=== PATIENT | male | born 1965 | race Caucasian/White ===

== ENCOUNTER 2020-09-25 13:58 | Observation (INO) | payer OTHER, SELFPAY ==
[2020-09-25] VITALS (34 sets, daily range): BP systolic 126–174; BP diastolic 82–111; PULSE 80–135; RESP 13–25; TEMP 36.4–37.1; O2SAT 93–100
--- NOTE | ~2020-09-25 | XR_ITS ---
EXAMINATION: XR chest 2V EXAM DATE: 09/25/2020 14:30 INDICATION: Left-sided chest pressure. Hypertension. TECHNIQUE: Frontal and lateral projections of the chest obtained and reviewed. There is no prior jimenez dy for comparison. FINDINGS: Right basilar granuloma. The lungs are otherwise clear. There are no pleural effusions. The cardiomediastinal silhouette is within normal limits. There is no pneumothorax suspected. The b ones and soft tissues are unremarkable. IMPRESSION: No acute cardiopulmonary findings. Reviewed, dictated and finalized at location A.
--- NOTE | ~2020-09-25 | CT_ITS ---
EXAMINATION: CTA chest PE protocol EXAM DATE: 09/25/2020 15:49 INDICATION: Shortness of breath for a month. TECHNIQUE: Spiral CTA of the chest (pulmonary arteries) was performed with 100 cc Omnipaque 350 intr avenous contrast injection. Images were acquired during the pulmonary arterial phase. Coronal maxi mum intensity projection 3D-reconstructions were created by the technologist on dedicated workstation . Axial, coronal and sagittal reformatted images were reviewed. The dose-length product (DLP) for t his examination was 587.47 mGy-cm. The exposure was tailored according to patient size (auto mA exp osure control), and iterative reconstruction (ASIR) was used as additional dose reduction technique. There is no prior study for comparison. FINDINGS: Pulmonary arteries are well opacified and without intraluminal filling defects. No thora cic aortic dissection. There are 2 right middle lobe nodules measuring 4 and 3 mm likely granulomas. There are some scattered calcified lung angiomas. There are no pleural or pericardial effusions. Tracheobronchial tree is patent. There is mild mediastinal lymphadenopathy, with a right paratracheal lymph node measuring 1.9 x 1.0 c m. There are some calcifications in subcarinal lymph nodes. No enlarged hilar nodes but there are chaitanya ateral hilar calcifications as well. Could be reactive from prior granulomatous process. There is no pneumothorax. Heart normal in size. There is moderate coronary arterial calcification, arterial sclerosis. There is hepatic steatosis. There is mild thoracic spondylosis without osteoblastic or o steolytic lesions identified. IMPRESSION: 1. No pulmonary embolism or acute findings. 2. Mild mediastinal lymphadenopathy, most likely reactive. Difficult to exclude sarcoidosis or malig jamie. Consider 3 month follow-up chest CT without contrast. 3. Hepatic steatosis. Reviewed, dictated and finalized at location A. IMPRESSION: 1. No pulmonary embolism or acute findings. 2. Mild mediastinal lymphadenopathy, most likely reactive. Difficult to exclud e sarcoidosis or malignancy. Consider 3 month follow-up chest CT without contra st. 3. Hepatic steatosis.
--- NOTE | ~2020-09-25 | NM_ITS ---
EXAMINATION: NM karina stress w perfusion DATE: 09/27/2020 13:28 INDICATION: Chest pain TECHNIQUE: Rest images were obtained following intravenous administration of 9.8 mCi Tc99m tetrofosmi n (Myoview). The patient was infused intravenously with Lexiscan (Regadenoson). Then, 31.1 mCi Tc99m tetrofosmin (Myoview) was administered intravenously, and stress images were obtained in supine posit ion. Additional prone post stress images were obtained. Data was reconstructed into short axis and ho rizontal and vertical long axis SPECT images. Gated SPECT images were also obtained. COMPARISON: None. FINDINGS: There are couple small mild nonreversible perfusion defects consistent with infarcts at the mid inferolateral segment and at the mid anterolateral segment. No reversible ischemia. There is nor mal left ventricular chamber size, wall motion and ejection fraction. Left ventricular ejection frac tion measures 70%. IMPRESSION: 1. Normal myocardial perfusion at rest and during stress. 2. Left ventricular ejection fraction measuring >70%. Reviewed, dictated and finalized at location A.
--- NOTE | 2020-09-25 14:08 | ECG_ITS ---
Measurements Intervals [place] Rate: 119 P: 60 CO: 124 QRS: 39 QRSD: 76 T: 56 QT: 327 QTc: 461 Interpretive Statements SINUS TACHYCARDIA POSSIBLE LEFT ATRIAL ENLARGEMENT BORDERLINE ST-T WAVE ABNORMALITY- ANTEROLAT/INF LEADS BASELINE ARTIFACT- I, II, III, AVR, AVL, AVF, V1-V2, V4-V5 ABNORMAL ECG Electronically Signed On 09-25-2020 14:29:32 CDT by Solomon Elias D.O.
[2020-09-25 14:45] LABS: Basophils Absolute Auto 0.1 K/mm3 (0.0-0.1); Basophils Percent Auto 0.8 % (0.2-1.2); Eosinophils Absolute Auto 0.1 K/mm3 (0-0.3); Eosinophils Percent Auto 0.7 % (0-4.4); Hematocrit 43.3 % (42.0-52.0); Hemoglobin 14.9 g/dL (14.0-18.0); Immature Granulocyte Absolute 0.04 K/mm3 (0.00-0.031); Immature Granulocyte Percent A 0.6 % (0-0.5); Immature Platelet Fraction Pct 3.9 % (0.9-11.2); Lymphocytes Absolute Auto 0.59 K/mm3 (0.9-3.2); Lymphocytes Percent Auto 8.1 % (18.3-44.2); Mean Corpuscular HGB Conc 34.4 g/dl (32-36); Mean Corpuscular Volume 95.8 fl (80-100); Mean Platelet Volume 9.6 fl (7.4-10.4); Monocytes Absolute Auto 0.5 K/mm3 (0.1-0.6); Monocytes Percent Auto 6.6 % (2.6-8.5); Neutrophils Absolute Auto 6.1 K/mm3 (1.3-6.7); Neutrophils Percent Auto 83.2 % (45.5-73.1); Platelet Count Result 161 k/mm3 (150-375); Red Blood Count 4.52 M/mm3 (4.6-6.20); Red Cell Distribution Width 12.5 % (11.5-14.5); White Blood Count 7.3 K/mm3 (4.5-10.0)
[2020-09-25 14:52] LABS: INR 0.9; Prothrombin Time 12.8 Seconds (11.1-14.7)
--- NOTE | 2020-09-25 14:52 | ED.CHESTPAIN ---
HPI - Chest Pain General Chief Complaint: Chest Pain Stated Complaint: chest pain, SOB Time Seen by Provider: 09/25/20 14:30 Source: patient and RN notes reviewed Mode of arrival: ambulatory Limitations: no limitations History of Present Illness HPI narrative: Patient is 55 years old white male presents to the ED with chest pain started today. Patient had history of shortness of breath on exertion which is gradually getting worse over the last months. Patient reported the pain is across the chest, aching, worse with exertion. No radiation. Patient denies any fever, chills, nausea, vomiting, back pain or abdominal pain. Last alcohol intake was 2 days ago. Related Data Home Medications Medication Instructions Recorded Confirmed amlodipine 09/25/20 atorvastatin 09/25/20 gabapentin 09/25/20 hydrocodone-acetaminophen 09/25/20 meloxicam 09/25/20 09/25/20 Allergies Allergy/AdvReac Type Severity Reaction Status Date / Time amoxicillin Allergy Intermediate ITCHING Verified 03/11/19 06:24 clavulanic acid Allergy Intermediate ITCHING Verified 03/11/19 06:24 lisinopril Allergy Intermediate ANGIOEDEMA Verified 03/11/19 06:24 Review of Systems Review of Systems: Narrative: CONSTITUTIONAL: Denies fever, chills, or sweats. EYES: Denies visual changes, redness, or discharge. ENT: Denies rhinorrhea, congestion, sore throat, or otalgia. CARDIOVASCULAR: Denies chest pain, palpitations, or edema. RESPIRATORY: Denies cough or dyspnea. GASTROINTESTINAL: Denies abdominal pain, nausea, vomiting, or diarrhea. GENITOURINARY: Denies dysuria or hematuria. SKIN: Denies rash or itching. MUSCULOSKELETAL: Denies back pain, joint pain, or myalgia. NEUROLOGIC: Denies headache, numbness, or weakness. PSYCHIATRIC: Denies anxiety or depression. PMFSH Social History Social History Gender identity (if verbalized by the patient): Male Exam Narrative: Exam Narrative: General appearance: Well-developed, well-nourished Skin: Normal color Head: Normocephalic, nontraumatic Eyes: Clear conjunctiva ENT: Oropharynx normal, ears normal, nose normal Neck: Supple, nontender Chest and respiratory: Airway patent, no respiratory distress, no accessory muscle use Heart: Regular rate/rhythm Abdomen: Soft, nontender, no organomegaly, quiet bowel sounds Vascular: Normal peripheral pulses, normal capillary refill. Musculoskeletal: Normal range of motion, nontender back Neurologic: Alert and oriented ?3, [employer] is normal as tested, no gross motor deficit Course Course Emergency Course: Stable Reevaluation(s) Reevaluation #1: Currently patient having some shaking almost all over his body, telling me that be because he did not eat his breakfast today. Patient reports drinking alcohol every other day. Last alcohol intake was 2 days ago. Ativan 1 mg IV ordered. Date: 09/25/20 Time: 16:50 Vital Signs Vital signs: Vital Signs Temperature 37.1 C 09/25/20 14:09 Pulse Rate 135 H 09/25/20 14:09 Respiratory Rate 18 09/25/20 14:09 Blood Pressure 145/95 H 09/25/20 14:09 Pulse Oximetry 97 09/25/20 14:09 Temperature 37.1 C 09/25/20 14:09 Pulse Rate 108 H 09/25/20 16:07 Respiratory Rate 18 09/25/20 14:09 Blood Pressure 145/95 H 09/25/20 14:09 Pulse Oximetry 97 09/25/20 14:09 MDM - Chest Pain MDM Narrative Medical decision making narrative: Patient presents with shortness of breath and chest pain. Coronary artery disease, pneumonia, congestive heart failure, COPD is my concern. Labs, chest x-ray, ABG on room air ordered. Further plan to follow Differential Diagnosis Differential diagnosis: Likely pne
[2020-09-25 14:53] LABS: Partial Thromboplastin Time 23.6 SECONDS (22.3-36.8)
[2020-09-25 14:57] LABS: Anion Gap 14 mmol/L (8-16); Blood Urea Nitrogen 7 mg/dL (9-20); Calcium 8.8 mg/dL (8.4-10.2); Carbon Dioxide 22 mmol/L (22-30); Chloride 100 mmol/L (98-107); Estimated CRCL calculation 97 ml/min; Estimated Glomerular Filt Rate > 60; Glucose 113 mg/dL (75-110); Potassium 3.7 mmol/L (3.4-5.0); Sodium 136 mmol/L (137-145)
[2020-09-25 15:08] LABS: Troponin I < 0.012 ng/mL (0.000-0.034)
[2020-09-25 15:12] LABS: D Dimer 0.79 ug/mL (<0.48)
[2020-09-25 15:12] LABS: Base Excess ABG -0.7 mEq/l (+/-2.0); Fractional Inspired Oxygen 21 %; HCO3 ABG 22.5 mEq/l (22.0-26.0); Oxygen Content ABG 19.6 %vol (16.0-22.0); Oxyhemoglobin 94.1 % THb (90.0-100.0); PCO2 ABG 33.1 mmHg (35.0-45.0); PO2 ABG 77.1 mmHg (80.0-100.0); PO2 FiO2 Ratio Arterial Blood 3.67 %; Total Hemoglobin 14.8 g/dL (12.0-18.0)
[2020-09-25 15:13] LABS: Device ROOM AIR; Modified Allen's Test Pass; Site Drawn LEFT RADIAL
[2020-09-25] MEDS: ASPIRIN 81 MG CHEWABLE TABLET 324 MG PO (16:06)
[2020-09-25] MEDS: METOPROLOL TARTRATE 25 MG TABLET PO (16:07)
[2020-09-25] MEDS: NITROGLYCERIN OINTMENT 1 INCH DOSE TRANSDERM (16:07)
[2020-09-25] MEDS: ENOXAPARIN 100 MG/ML SYRINGE 90 MG SUB-Q (16:07)
[2020-09-25] MEDS: LORazepam INJ (*CRX) 2 MG/ML VIAL 1 MG IV PUSH (17:09)
[2020-09-25 17:47] LABS: Troponin I < 0.012 ng/mL (0.000-0.034)
--- NOTE | 2020-09-25 20:05 | ECG_ITS ---
Measurements Intervals [place] Rate: 89 P: 66 NM: 146 QRS: 37 QRSD: 92 T: 51 QT: 387 QTc: 471 Interpretive Statements SINUS RHYTHM POSSIBLE LEFT ATRIAL ENLARGEMENT BORDERLINE ECG Electronically Signed On 09-26-2020 7:07:26 CDT by Solomon Elias D.O.
--- NOTE | 2020-09-25 20:31 | PM.IMHP ---
H&P: HPI History of Present Illness Date/Time: 09/25/20 20:31 Chief Complaint: shortness of breath and chest pain Narrative: This is a pleasant 55-year-old male with known history of chronic hypertension and hyperlipidemia who presented to the hospital with a complaint of left-sided chest pain that started earlier today. The patient complains of having intermittent shortness of breath over the past couple of months. He describes his shortness of breath as occurring at any time and lasting for an unknown amount of duration. He describes it as not being able to get a full breath. The patient denies any associated symptoms of significant coughing, fevers, chills, abdominal pain, or lower extremity swelling. The patient has no previous history of blood clotting disorders. He also does not have any past medical history of heart disease. His last stress test was several years ago and was normal. Today the patient's chest pain started while he was helping his friend at home. They were not doing any exertional activity at that time. The patient's chest pain does not radiate anywhere and he denies any associated diaphoresis, nausea, vomiting, palpitations, or syncope. Patient is known to drink between 5-8 alcoholic drinks every other day. He reports his last drink was 2 days ago. Today in the emergency room the patient was evaluated and was given 2 doses of 1 mg IV Ativan as the patient appeared to be very tremulous and anxious. Initial cardiac workup has been negative as EKG does not show any ST segment changes and troponin has been negative x2. ER provider has consulted Cardiology and we have been asked to admit the patient to the hospital for cardiac rule out. The patient has no other complaints at this time. CTA chest was performed in the emergency room which did demonstrate mild mediastinal lymphadenopathy. Review of Systems Review of Systems: All systems reviewed & are unremarkable except as noted in HPI and below PMFSH Past Medical History Medical History (Updated 09/25/20 @ 20:43 by Pardeep Mullen MD) Chronic hypertension Hyperlipidemia Surgical History Surgical History (Updated 09/25/20 @ 20:35 by Pardeep Mullen MD) History of hernia surgery Family History Family History (Updated 09/25/20 @ 20:35 by Pardeep Mullen MD) Mother Breast cancer Social History Social History (Updated 09/25/20 @ 20:36 by Pardeep Mullen MD) Smoking status: Never smoker Tobacco type: smokeless tobacco Smokeless tobacco user: chewing tobacco Alcohol intake: current Drinks per week: 18 Substance use: never Gender identity (if verbalized by the patient): Male Spiritual care concerns: No Meds Home Medications and Allergies Home Medications Medication Instructions Recorded Confirmed Type amlodipine 5 mg PO DAILY 09/25/20 09/25/20 History atorvastatin 20 mg PO HS 09/25/20 09/25/20 History cyclobenzaprine 10 mg PO HS 09/25/20 09/25/20 History gabapentin 300 mg PO TID 09/25/20 09/25/20 History hydrocodone-acetaminophen 1 tablet PO QID PRN 09/25/20 09/25/20 History meloxicam 15 mg PO DAILY 09/25/20 09/25/20 History Allergies Allergy/AdvReac Type Severity Reaction Status Date / Time amoxicillin Allergy Intermediate ITCHING Verified 03/11/19 06:24 clavulanic acid Allergy Intermediate ITCHING Verified 03/11/19 06:24 lisinopril Allergy Intermediate ANGIOEDEMA Verified 03/11/19 06:24 Vital Signs Vital Signs - 24 hr 09/25/20 14:09 09/25/20 15:00 09/25/20 15:01 Temperature 37.1 C Pulse Rate 135 H 115 H 115 H Respiratory Rate 18 19 21 H Blood Pressure 145/95 H 164/89 H Pulse Oximetry 97 98 96 09/25/20 15:15 09/25/20 15:17 09/25/20 15:30 Temperature Pulse Rate 110 H 116 H 105 H Respiratory Rate 23 H 25 H 23 H Blood Pressure 138/97 H Pulse Oximetry 93 97 97 09/25/20 15:31 09/25/20 15:55 09/25/20 15:56 Temperature Pulse Rate 106 H 106 H 106 H Respiratory Rate 21 H 14 13 Blo
[2020-09-25 20:59] LABS: Alanine Aminotransferase 106 U/L (4-50); Alkaline Phosphatase 47 U/L (38-126); Aspartate Amino Transferase 130 U/L (17-59); Lipase 227 U/L (23-300)
[2020-09-25 20:59] LABS: Troponin I < 0.012 ng/mL (0.000-0.034)
[2020-09-26] VITALS (16 sets, daily range): BP systolic 130–186; BP diastolic 73–104; PULSE 70–101; RESP 14–20; TEMP 36.1–36.6; O2SAT 96–99; BMI 27.8
[2020-09-26] MEDS: ATORVASTATIN 20 MG TABLET PO ×2 (00:01→20:39)
[2020-09-26 00:02] LABS: Glucose Point of Care 101 (65-105)
[2020-09-26] MEDS: LORazepam INJ (*CRX) 2 MG/ML VIAL 1 MG IV PUSH (00:02)
[2020-09-26] MEDS: CYCLOBENZAPRINE HCL 10 MG TABLET PO ×2 (00:02→20:41)
--- NOTE | 2020-09-26 06:00 | ECHO_ITS ---
Patient Info Name: Nico Claudio Age: 55 years : 1965 Gender: Male Ht: 71 in Wt: 198 lbs BSA: 2.14 m2 HR: 91 bpm BP: 148 / 93 mmHg Heart Rhythm: Sinus Rhythm Technical Quality: Good Exam Date: 09/26/2020 11:12 AM Exam Location: [facility] Patient Status: Outpatient Admit Date: 09/25/2020 Staff Ordering Physician: Betzy Rangel MD Mingle Operator: Akil Curtis, BEBETO, RT Attending Provider: Jennifer Morris MD Exam Type: CA echo doppler color flow Study Info Indications R07.89 - Other chest pain Complete two-dimensional, color flow and Doppler transthoracic echocardiogram is performed. Strain analysis performed. Summary 1. Complete two-dimensional, color flow and Doppler transthoracic echocardiogram is performed. 2. Strain analysis performed. 3. Global longitudinal strain is borderline at -16 %. 4. Left ventricular chamber dimension is normal. 5. Left ventricular systolic function is normal, estimated at 65-70%. 6. There is no increased left ventricular wall thickness. 7. The left ventricular diastolic function is grade I diastolic dysfunction. 8. The pericardium appears increased echogenicity of the pericardium. Left Ventricle Global longitudinal strain is borderline at -16 %. Left ventricular chamber dimension is normal. Left ventricular systolic function is normal, estimated at 65-70%. There is no increased left ventricular wall thickness. The left ventricular diastolic function is grade I diastolic dysfunction. Right Ventricle Right ventricular chamber dimension is normal. Right ventricular systolic function is normal. Left Atria Left atrial chamber dimension is normal. Right Atria Right atrial chamber dimension is normal. Atrial Septum Intact interatrial septum visualized by color flow imaging. Aortic Valve The aortic valve is trileaflet. There is mild aortic valve sclerosis. There is no aortic valve stenosis. There is trace aortic valve regurgitation. Pulmonic Valve The pulmonic valve is normal. There is no pulmonic valve stenosis. There is trace pulmonic regurgitation. Mitral Valve The mitral valve has normal leaflets. There is no mitral valve stenosis. There is trace mitral valve regurgitation. Tricuspid Valve The tricuspid valve leaflets are normal. There is no significant tricuspid valve stenosis. There is trace tricuspid valve regurgitation. Pericardium/Pleural The pericardium appears increased echogenicity of the pericardium. There is trivial pericardial effusion. Inferior Vena Cava Normal inferior vena cava with <50% collapse upon inspiration consistent with elevated right atrial pressure, 10 mmHg. Aorta The aortic root size at the sinus of Valsalva is normal. The prox ascending aorta size is normal. Left Ventricular Outflow Tract Name Value Normal LVOT 2D LVOT Diameter 2.1 cm LVOT Doppler LVOT Peak Gradient 4 mmHg LVOT Mean Gradient 2 mmHg LVOT VTI 17 cm LVOT VTI/AV VTI Ratio 0.8 LVOT S
[2020-09-26] MEDS: THIAMINE HCL 200 MG/2 ML VIAL 100 MG IV PUSH (07:51)
[2020-09-26] MEDS: GABAPENTIN 300 MG CAPSULE PO ×3 (07:51→16:28)
[2020-09-26] MEDS: amLODIPine BESYLATE 5 MG TABLET PO (07:51)
[2020-09-26] MEDS: ASPIRIN 81 MG CHEWABLE TABLET PO (07:53)
[2020-09-26 11:10] LABS: Hematocrit 42.6 % (42.0-52.0); Hemoglobin 14.7 g/dL (14.0-18.0); Mean Corpuscular HGB Conc 34.5 g/dl (32-36); Mean Corpuscular Hemoglobin 33.1 pg (26-34); Mean Corpuscular Volume 95.9 fl (80-100); Mean Platelet Volume 9.8 fl (7.4-10.4); Platelet Count Result 114 k/mm3 (150-375); Red Blood Count 4.44 M/mm3 (4.6-6.20); Red Cell Distribution Width 12.5 % (11.5-14.5); White Blood Count 4.3 K/mm3 (4.5-10.0)
[2020-09-26 11:24] LABS: Alanine Aminotransferase 82 U/L (4-50); Albumin Level 4.2 g/dL (3.5-5.1); Alkaline Phosphatase 43 U/L (38-126); Anion Gap 7 mmol/L (8-16); Aspartate Amino Transferase 90 U/L (17-59); Bilirubin,Total 1.5 mg/dL (0.2-1.3); Blood Urea Nitrogen 15 mg/dL (9-20); Calcium 8.8 mg/dL (8.4-10.2); Carbon Dioxide 30 mmol/L (22-30); Chloride 99 mmol/L (98-107); Estimated CRCL calculation 126 ml/min; Estimated Glomerular Filt Rate > 60; Glucose 143 mg/dL (75-110); Magnesium 1.8 mg/dL (1.6-2.3); Potassium 3.4 mmol/L (3.4-5.0); Sodium 136 mmol/L (137-145)
[2020-09-26 13:17] LABS: Glucose Point of Care 115 (65-105)
--- NOTE | 2020-09-26 15:06 | PM.CNCAR ---
Assessment and Plan Assessment and plan (1) Abnormal CT of the chest: Code(s): R93.89 - Abnormal findings on diagnostic imaging of other specified body structures Status: Acute Assessment and Plan: Will consult pulmonology, Dr. Lerma. (2) Hyperlipidemia: Qualifiers: Hyperlipidemia type: unspecified Qualified Code(s): E78.5 - Hyperlipidemia, unspecified Code(s): E78.5 - Hyperlipidemia, unspecified Status: Chronic Assessment and Plan: On a statin (3) Chronic hypertension: Code(s): I10 - Essential (primary) hypertension Status: Chronic Assessment and Plan: Above goal. Will initiate his amlodipine 5 mg daily as well as start metoprolol 25 mg p.o. b.i.d.. (4) Chest pain: Qualifiers: Chest pain type: unspecified Qualified Code(s): R07.9 - Chest pain, unspecified Code(s): R07.9 - Chest pain, unspecified Status: Acute Assessment and Plan: Unlikely cardiac in etiology. Very atypical for angina. Will keep NPO after midnight. Will perform a Lexiscan myocardial perfusion study in the morning. (5) Alcohol dependence: Qualifiers: Substance use status: unspecified alcohol-induced disorder Qualified Code(s): F10.29 - Alcohol dependence with unspecified alcohol-induced disorder Code(s): F10.20 - Alcohol dependence, uncomplicated Status: Chronic Assessment and Plan: Alcohol abuse counseling performed. He likely is going to need some DT prophylaxis but will defer to the hospitalists (6) Pre-syncope: Code(s): R55 - Syncope and collapse Status: Acute Assessment and Plan: Probably has some degree of orthostasis either from chronic alcohol use and autonomic dysfunction versus dehydration or a combination thereof. He is encouraged to stay hydrated and will check the orthostatic blood pressure History of Present Illness History of Present Illness Consult date/time: 09/26/20 15:06 Requesting physician: Betzy Rangel MD Consult reason: chest pain Reason For Visit: Chest pain, dyspnea on exertion Narrative: Date of service 09/26/2020 Reason for consultation: Chest pain, dyspnea on exertion History: patient is a 55-year-old male who does not have known cardiac disease. He presents hospital because chest pressure. He states the chest pressure has been off and on for the past couple of months. He has had about 3 or 4 episodes of chest pain lasting for about an hour. Not exertional chest pain. Yesterday however it was more significant and lasted for a longer period of time. He came to hospital after multiple hours of having chest pressure with a little bit of radiation towards the left shoulder and with some associated lightheadedness. Gradually over time it did ease up on its own. He has ruled out myocardial infarction is EKG was unremarkable. He does drink in excess and at least 6 beers every other day he states. He also has been having some shortness of breath. Shortness of breath has been with exertion and has been present for the past several months. Is progressively worsening. His dyspnea is present when he is going up and down a flight of steps. He denies any syncope. No paroxysmal nocturnal dyspnea. No orthopnea. No edema. He does describe some dizziness upon standing. Review of Systems Review of Systems: All systems reviewed & are unremarkable except as noted in HPI and below Constitutional: Constitutional: Denies weakness Eyes: Eyes: Denies blurry vision ENT: Reports Normal hearing present Cardiovascular: Cardiovascular: Reports chest pain Respiratory: Respiratory: Reports dyspnea Gastrointestinal: Gastrointestinal: Denies abdominal pain Genitourinary: Genitourinary: Denies dysuria Musculoskeletal: Musculoskeletal: Reports arthralgias and Denies neck pain Integumentary/Breasts: Skin/Breast: Denies dry skin Neurologic: Denies headache(s) Psychiatric: Psy
--- NOTE | 2020-09-26 17:08 | PM.IMPN ---
Progress Note: A&P Assessment and Plan (1) Chest pain: Qualifiers: Chest pain type: unspecified Qualified Code(s): R07.9 - Chest pain, unspecified Code(s): R07.9 - Chest pain, unspecified Status: Acute Assessment and Plan: Rule out acute coronary syndrome. Patient has been placed in observation status. Continue telemetry. Will check another EKG now. Continue to trend troponin. We will check a lipase and liver function enzymes which have not been checked yet. Continue nitroglycerin as needed for chest pain. Morphine as needed for chest pain. Continue therapeutic Lovenox for anticoagulation. Cardiology has been consulted by ER provider. Continue Cardiology recommendations. 09/26/20 17:08 Patient is a 55-year-old male presented emergency department with a complaint of shortness of breath and left-sided chest pain symptoms are persisting for last couple of months but getting progress worse, 3 sets of cardiac enzymes are negative there is no acute changes on EKG unlikely cardiac source or chest pain, cardiac echo is pending, patient is seen by Cardiology and suspect pulmonary source chest pain and shortness of breath, patient has abnormal CT of chest suggesting malignancy with lymphadenopathy patient will be seen by pulmonology and further recommendation to follow, patient also has a history of alcohol abuse he drinks 7-8 alcohol drinks every other day he denies any history of DT. (2) Exertional dyspnea: Code(s): R06.00 - Dyspnea, unspecified Status: Acute Assessment and Plan: Echocardiogram is pending. The patient is not requiring any supplemental oxygen at this time. (3) Abnormal CT of the chest: Code(s): R93.89 - Abnormal findings on diagnostic imaging of other specified body structures Status: Acute Assessment and Plan: The patient's mediastinal lymphadenopathy may be indicative of why the patient has had chronic dyspnea. He will need to have this worked up in the outpatient setting on discharge. (4) Alcohol dependence: Qualifiers: Substance use status: unspecified alcohol-induced disorder Qualified Code(s): F10.29 - Alcohol dependence with unspecified alcohol-induced disorder Code(s): F10.20 - Alcohol dependence, uncomplicated Status: Chronic Assessment and Plan: [facility] protocol. Ativan withdrawal prophylaxis IV. Thiamine IV daily. (5) Chronic hypertension: Code(s): I10 - Essential (primary) hypertension Status: Chronic Assessment and Plan: Monitor blood pressure. Continue amlodipine. (6) Hyperlipidemia: Qualifiers: Hyperlipidemia type: unspecified Qualified Code(s): E78.5 - Hyperlipidemia, unspecified Code(s): E78.5 - Hyperlipidemia, unspecified Status: Chronic Assessment and Plan: Continue atorvastatin. Additional Plan Date of service was September 25, 2020 at approximately 8:00 p.m. Subjective Date/time seen: 09/26/20 17:08 Patient is a 55-year-old male presented emergency department with a complaint of shortness of breath and left-sided chest pain symptoms are persisting for last couple of months but getting progress worse, 3 sets of cardiac enzymes are negative there is no acute changes on EKG unlikely cardiac source or chest pain, cardiac echo is pending, patient is seen by Cardiology and suspect pulmonary source chest pain and shortness of breath, patient has abnormal CT of chest suggesting malignancy with lymphadenopathy patient will be seen by pulmonology and further recommendation to follow, patient also has a history of alcohol abuse he drinks 7-8 alcohol drinks every other day he denies any history of DT. Review of Systems Review of Systems: All systems reviewed & are unremarkable except as noted in HPI and below Exam Narrative: Exam Narrative: Patient is comfortable, NAD HEENT: eyes are clear and none icteric LUNGS: Bilateral fair air entry with rhonchi H
[2020-09-26 17:52] LABS: Glucose Point of Care 195 (65-105)
[2020-09-26] MEDS: METOPROLOL TARTRATE 25 MG TABLET PO (20:39)
[2020-09-27] VITALS (9 sets, daily range): BP systolic 131–172; BP diastolic 80–99; PULSE 70–92; RESP 12–18; TEMP 36.6–36.9; O2SAT 96–100
[2020-09-27 00:13] LABS: Glucose Point of Care 156 (65-105)
[2020-09-27 05:15] LABS: Hematocrit 43.6 % (42.0-52.0); Hemoglobin 14.7 g/dL (14.0-18.0); Immature Platelet Fraction Pct 4.7 % (0.9-11.2); Mean Corpuscular HGB Conc 33.7 g/dl (32-36); Mean Corpuscular Hemoglobin 32.6 pg (26-34); Mean Corpuscular Volume 96.7 fl (80-100); Mean Platelet Volume 10.3 fl (7.4-10.4); Platelet Count Result 128 k/mm3 (150-375); Red Blood Count 4.51 M/mm3 (4.6-6.20); Red Cell Distribution Width 12.4 % (11.5-14.5); White Blood Count 5.2 K/mm3 (4.5-10.0)
[2020-09-27 05:26] LABS: Alanine Aminotransferase 77 U/L (4-50); Albumin Level 4.3 g/dL (3.5-5.1); Alkaline Phosphatase 41 U/L (38-126); Anion Gap 6 mmol/L (8-16); Aspartate Amino Transferase 73 U/L (17-59); Bilirubin,Total 1.2 mg/dL (0.2-1.3); Blood Urea Nitrogen 10 mg/dL (9-20); Calcium 8.9 mg/dL (8.4-10.2); Carbon Dioxide 31 mmol/L (22-30); Chloride 103 mmol/L (98-107); Estimated CRCL calculation 97 ml/min; Estimated Glomerular Filt Rate > 60; Glucose 116 mg/dL (75-110); Potassium 3.4 mmol/L (3.4-5.0); Sodium 140 mmol/L (137-145)
--- NOTE | 2020-09-27 08:00 | EST_ITS ---
Patient Info Name: Nico Claudio Age: 55 years : 1965 Gender: Male Ht: 71 in Wt: 199 lbs BSA: 2.14 m2 Exam Date: 09/27/2020 12:15 PM Exam Location: [facility], [place] Stress Patient Status: Inpatient Admit Date: 09/25/2020 Staff Ordering Physician: Ernesto Borrero MD Attending Provider: Jennifer Morris MD Exercise Technologist: Rhonda Reyes RDCS Exercise Physician: Ernesto Borrero MD Exam Type: CA stress karina w NM Study Info Indications R07.9 - Chest pain, unspecified A regadenoson stress test was performed. Summary 1. Please correlate with nuclear medicine images, reported separately. 2. No abnormal ST-T wave changes with lexiscan. Protocol: Lexiscan Stress ECG Details Stage: REST Duration (min): 12 min : 28 sec HR (bpm): 100 SBP (mmHg): 148 DBP (mmHg): 99 Stage: REST Duration (min): 13 min : 33 sec HR (bpm): 91 SBP (mmHg): 148 DBP (mmHg): 99 Stage: STAGE 1 Duration (min): 1 min : 0 sec HR (bpm): 121 SBP (mmHg): 157 DBP (mmHg): 111 Stage: RECOVERY Duration (min): 1 min : 0 sec HR (bpm): 124 SBP (mmHg): 134 DBP (mmHg): 95 Stage: RECOVERY Duration (min): 2 min : 0 sec HR (bpm): 117 SBP (mmHg): 134 DBP (mmHg): 95 Stage: RECOVERY Duration (min): 3 min : 0 sec HR (bpm): 115 SBP (mmHg): 131 DBP (mmHg): 95 Stage: RECOVERY Duration (min): 3 min : 8 sec HR (bpm): 115 SBP (mmHg): 131 DBP (mmHg): 95 Rest HR: 91 bpm Peak HR: 124 bpm Rest Sys BP: 148 mmHg Peak Sys BP: 157 mmHg Max Pred HR: 165 bpm % Max Pred HR: 75 % Target HR: 140 bpm Max RPP: 19,468 bpm*mmHg Target HR Summary: Hemodynamic response to exercise was normal BP Response: Normal blood pressure response Termination Reason: Completed protocol Cardiac Symptoms: None Total Time: 1 min : 0 sec Rest Guerra BP: 99 mmHg Peak Guerra BP: 111 mmHg Total Dose: 0.4 mg Resting ECG Normal sinus rhythm. Resting ST/T wave changes. pvc. Stress ECG No abnormal ST/T wave changes with exercise. Arrhythmias Occasional PVCs. Report Signatures
[2020-09-27 09:05] LABS: Glucose Point of Care 126 (65-105)
--- NOTE | 2020-09-27 09:59 | PM.PNCARD ---
Progress Note: A&P Assessment and Plan (1) Abnormal CT of the chest: Code(s): R93.89 - Abnormal findings on diagnostic imaging of other specified body structures Status: Acute Assessment and Plan: Will consult pulmonology, Dr. Lerma. (2) Hyperlipidemia: Qualifiers: Hyperlipidemia type: unspecified Qualified Code(s): E78.5 - Hyperlipidemia, unspecified Code(s): E78.5 - Hyperlipidemia, unspecified Status: Chronic Assessment and Plan: On a statin (3) Chronic hypertension: Code(s): I10 - Essential (primary) hypertension Status: Chronic Assessment and Plan: Above goal. will increase his amlodipine to 10 mg daily. Potassium chloride 40 mg p.o. x1 will also be given (4) Chest pain: Qualifiers: Chest pain type: unspecified Qualified Code(s): R07.9 - Chest pain, unspecified Code(s): R07.9 - Chest pain, unspecified Status: Acute Assessment and Plan: Unlikely cardiac in etiology. Very atypical for angina. stress test pending (5) Alcohol dependence: Qualifiers: Substance use status: unspecified alcohol-induced disorder Qualified Code(s): F10.29 - Alcohol dependence with unspecified alcohol-induced disorder Code(s): F10.20 - Alcohol dependence, uncomplicated Status: Chronic Assessment and Plan: Alcohol abuse counseling performed. He likely is going to need some DT prophylaxis but will defer to the hospitalists (6) Pre-syncope: Code(s): R55 - Syncope and collapse Status: Acute Assessment and Plan: Probably has some degree of orthostasis either from chronic alcohol use and autonomic dysfunction versus dehydration or a combination thereof. He is encouraged to stay hydrated and will check the orthostatic blood pressure Subjective Date/time seen: 09/27/20 09:59 Interval history: 55-year-old admitted for chest pain or shortness of breath. Date of service 09/27/2020: No chest pain at this point. Feels okay. Has slight cough. no SOB Review of Systems Review of Systems: All systems reviewed & are unremarkable except as noted in HPI and below Constitutional: Constitutional: Denies fatigue, Denies headache(s) and Denies weakness Eyes: Eyes: Denies blurry vision ENT: Reports Normal hearing present, Denies headache(s) and Denies neck pain Cardiovascular: Cardiovascular: Reports chest pain and Reports dyspnea Respiratory: Respiratory: Reports dyspnea Gastrointestinal: Gastrointestinal: Denies abdominal pain Genitourinary: Genitourinary: Denies dysuria Musculoskeletal: Musculoskeletal: Reports arthralgias and Denies neck pain Integumentary/Breasts: Skin/Breast: Denies dry skin Neurologic: Reports Normal hearing present, Denies headache(s) and Denies weakness Psychiatric: Psychiatric: Denies anxiety Endocrine: Endocrine: Denies fatigue Hematologic/Lymphatic: Hematologic/Lymphatic: Denies easy bleeding Allergic/Immunologic: Allergic/Immunologic: Denies GI upset with certain foods Exam Narrative: Exam Narrative: Patient is awake alert oriented. Appears a bit tremulous but stated age Const: General: comfortable and no acute distress HENMT: General nose exam: Normal nares present Eyes: EOM: EOMs intact bilaterally Neck: Neck: supple and no JVD Chest: Other: No reproducible chest wall pain to palpation Resp: Auscultation: clear to auscultation bilaterally Cardio: Rate: regular rate Rhythm: regular rhythm Heart sounds: no murmurs GI: Inspection: normal to inspection Skin: General skin exam: normal color Neuro: Cranial nerves: Yes Normal hearing present Cognition (Neuro): normal cognition Speech: normal speech Extrem: General: normal to inspection Psych: Mental Status: mental status grossly normal Objective Data Vital Signs Vital Signs: Vital Signs - 24 hr 09/26/20 11:50 09/26/20 12:00 09/26/20 14:00 Temperature 36.5 C P
[2020-09-27] MEDS: GABAPENTIN 300 MG CAPSULE PO ×2 (10:33→14:00)
[2020-09-27] MEDS: THIAMINE HCL 200 MG/2 ML VIAL 100 MG IV PUSH (10:33)
[2020-09-27 11:50] LABS: Glucose Point of Care 131 (65-105)
--- NOTE | 2020-09-27 12:09 | PM.CNPUL ---
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 Patient has mild mediastinal adenopathy. Patient should have a follow-up CT scan of the chest in 3 months to reassess this mediastinal adenopathy. We will follow patient up in the Pulmonary Clinic and I gave him our business card and will inform our food production manager. Patient can be discharged from pulmonary perspective. Discussed with Dr. Morris, will sign off for now, please call with additional questions. History of Present Illness History of Present Illness Consult date: 09/27/20 Requesting physician: Jennifer Morris MD Reason for consult: abnormal CXR/CT Chief complaint: Chest pain, dyspnea on exertion Narrative: This is a new pulmonary consult for mediastinal lymphadenopathy. This is a 55-year-old male with a history of hypertension hyperlipidemia who came to the hospital with left-sided chest pain on 09/25. Patient had 2- troponins and a D-dimer that was positive at 0.[address] angiogram of the chest. That demonstrated no PE with mild mediastinal lymphadenopathy and paratracheal lymph node measuring 1.9 x 1 cm. There were some calcified subcarinal lymph nodes but no evidence of pneumonia, interstitial lung disease, or peripheral nodules or masses. 09/27 I interviewed the patient today and he tells me that his chest pain is improved. patient states that he has no fever, chills, rigors, phlegm production 3 times a day of white to yellow phlegm for years, no hemoptysis, patient does have sinus drainage which is chronic. Patient has lost 23 lb in the last 2 months. Patient does drink alcohol regularly and his last drink was 4 days ago. Patient does state that he has 1 year of progressively worsening dyspnea on exertion that is worse in the last 3 months. Patient is able to perform all of his activities of daily living. Patient is a never smoker. Patient was not exposed to secondhand smoke as a child or as an adult. Patient denies any illicit drug use. 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 The last 5 years he wore a mask. Before that he was exposed to multiple dusts. Patient denies and blasting, welding, asbestos exposure and has not worked in the steel mill. FINDINGS: Pulmonary arteries are well opacified and without intraluminal filling defects. No thoracic aortic dissection. There are 2 right middle lobe nodules measuring 4 and 3 mm likely granulomas. There are some scattered calcified lung angiomas. There are no pleural or pericardial effusions. Tracheobronchial tree is patent. There is mild mediastinal lymphadenopathy, with a right paratracheal lymph node measuring 1.9 x 1.0 cm. There are some calcifications in subcarinal lymph nodes. No enlarged hilar nodes but there are bilateral hilar calcifications as well. Could be reactive from prior granulomatous process. There is no pneumothorax. Heart normal in size. There is moderate coronary arterial calcification, arterial sclerosis. There is hepatic steatosis. There is mild thoracic spondylosis without osteoblastic or osteolytic lesions identified. IMPRESSION: 1. No pulmonary embolism or acute findings. 2. Mild mediastinal lymphadenopathy, most likely reactive. Difficult to exclude sarcoidosis or malignancy. Consider 3 month follow-up chest CT without contrast. 3. Hepatic steatosis. Review of Systems Review of Systems: All systems reviewed & are unremarkable except as noted in HPI and below Eyes: Eyes: Reports no additional eye complaints ENT: Reports system reviewed and no additional complaints, except as documented and Reports sinus pressure Cardiovascular: Cardiovascular: Reports no additional cardiovascular complaints Respiratory:
[2020-09-27] MEDS: POTASSIUM CHLORIDE 20 MEQ TABLET 40 MEQ PO (14:00)
[2020-09-27] MEDS: METOPROLOL TARTRATE 25 MG TABLET PO (14:00)
[2020-09-27] MEDS: ASPIRIN 81 MG CHEWABLE TABLET PO (14:04)
[2020-09-27] MEDS: amLODIPine BESYLATE 5 MG TABLET PO (14:09)
[2020-09-27] MEDS: chlordiazePOXIDE (*CRX) 25 MG CAPSULE 50 MG PO (14:10)
--- NOTE | 2020-09-27 14:44 | PC.NURSE ---
[id number] returned to room - stress test completed- am medications given
--- NOTE | 2020-09-27 15:05 | PM.DS ---
DS: Admitting Diagnosis Admitting Diagnosis Admitting Diagnosis: Chief Complaint: shortness of breath and chest pain DS: Discharge Diagnosis Discharge Diagnosis (1) Chest pain: Qualifiers: Chest pain type: unspecified Qualified Code(s): R07.9 - Chest pain, unspecified Code(s): R07.9 - Chest pain, unspecified Status: Acute Assessment and Plan: Rule out acute coronary syndrome. Patient has been placed in observation status. Continue telemetry. Will check another EKG now. Continue to trend troponin. We will check a lipase and liver function enzymes which have not been checked yet. Continue nitroglycerin as needed for chest pain. Morphine as needed for chest pain. Continue therapeutic Lovenox for anticoagulation. Cardiology has been consulted by ER provider. Continue Cardiology recommendations. 09/26/20 17:08 Patient is a 55-year-old male presented emergency department with a complaint of shortness of breath and left-sided chest pain symptoms are persisting for last couple of months but getting progress worse, 3 sets of cardiac enzymes are negative there is no acute changes on EKG unlikely cardiac source or chest pain, cardiac echo is pending, patient is seen by Cardiology and suspect pulmonary source chest pain and shortness of breath, patient has abnormal CT of chest suggesting malignancy with lymphadenopathy patient will be seen by pulmonology and further recommendation to follow, patient also has a history of alcohol abuse he drinks 7-8 alcohol drinks every other day he denies any history of DT. (2) Exertional dyspnea: Code(s): R06.00 - Dyspnea, unspecified Status: Acute Assessment and Plan: Echocardiogram is pending. The patient is not requiring any supplemental oxygen at this time. (3) Abnormal CT of the chest: Code(s): R93.89 - Abnormal findings on diagnostic imaging of other specified body structures Status: Acute Assessment and Plan: The patient's mediastinal lymphadenopathy may be indicative of why the patient has had chronic dyspnea. He will need to have this worked up in the outpatient setting on discharge. (4) Alcohol dependence: Qualifiers: Substance use status: unspecified alcohol-induced disorder Qualified Code(s): F10.29 - Alcohol dependence with unspecified alcohol-induced disorder Code(s): F10.20 - Alcohol dependence, uncomplicated Status: Chronic Assessment and Plan: [facility] protocol. Ativan withdrawal prophylaxis IV. Thiamine IV daily. (5) Chronic hypertension: Code(s): I10 - Essential (primary) hypertension Status: Chronic Assessment and Plan: Monitor blood pressure. Continue amlodipine. (6) Hyperlipidemia: Qualifiers: Hyperlipidemia type: unspecified Qualified Code(s): E78.5 - Hyperlipidemia, unspecified Code(s): E78.5 - Hyperlipidemia, unspecified Status: Chronic Assessment and Plan: Continue atorvastatin. DS: Summary Hospital Course Reason for hospitalization: Chief Complaint: shortness of breath and chest pain Narrative: This is a pleasant 55-year-old male with known history of chronic hypertension and hyperlipidemia who presented to the hospital with a complaint of left-sided chest pain that started earlier today. The patient complains of having intermittent shortness of breath over the past couple of months. He describes his shortness of breath as occurring at any time and lasting for an unknown amount of duration. He describes it as not being able to get a full breath. The patient denies any associated symptoms of significant coughing, fevers, chills, abdominal pain, or lower extremity swelling. The patient has no previous history of blood clotting disorders. He also does not have any past medical history of heart disease. His last stress test was several years ago and was normal. Today the patient's chest pain started while he was helpi
== END 2020-09-27 16:22 | disposition home or self-care (01) ==
LOC: ANHED 16:46 → ANHIMU 18:19
PROVIDERS: Emergency Medicine; Family Medicine; Admitting Provider Family Medicine; Emergency Provider Emergency Medicine; PCP Internal Medicine; Visit Provider Family Medicine
DX: R07.9 Chest pain, unspecified (principal); R06.00 Dyspnea, unspecified; R59.0 Localized enlarged lymph nodes; F10.20 Alcohol dependence, uncomplicated; R55 Syncope and collapse; I10 Essential (primary) hypertension; E78.5 Hyperlipidemia, unspecified; K76.0 Fatty (change of) liver, not elsewhere classified; F17.220 Nicotine dependence, chewing tobacco, uncomplicated
CPT/HCPCS: 36415; 36600; 71046; 71275; 78452; 80048; 80053; 82805; 83690; 83735; 84075; 84450; 84460; 84484; 85025; 85027; 85055; 85380; 85610; 85730; 93005; 93017; 93306; 96365; 96372; 96374; 96375; 99285; A9270; A9502; G0378; G0379; J0131; J1650; J2060; J2785; J3411; Q9967

== ENCOUNTER 2020-10-11 21:09 | Emergency (ER) | payer OTHER, SELFPAY ==
--- NOTE | ~2020-10-11 | XR_ITS ---
XR chest 2V DATE: 10/11/2020 21:46 INDICATION: Shortness of breath. Hypertension. TECHNIQUE: PA and lateral views COMPARISON: 09/25/2020 CT pulmonary scan 09/25/2020 PA and lateral chest FINDINGS: Normal heart size. No hilar or mediastinal enlargement. No pulmonary infiltrate or consolid ation, pleural effusion or pulmonary vascular congestion or pneumothorax is evident. IMPRESSION: No active cardiopulmonary disease or significant change since 09/25/2020 Reviewed, dictated and finalized at location A. IMPRESSION: No active cardiopulmonary disease or significant change since 2020
--- NOTE | ~2020-10-11 | CT_ITS ---
EXAMINATION: CTA chest PE protocol DATE: 10/11/2020 23:57 INDICATION: Shortness of breath TECHNIQUE: Computed tomography (CT) pulmonary angiogram of the chest was performed with 100 mL Omnipa que-350 intravenous contrast. Additional 3D reconstructions utilizing coronal maximum intensity proje ction (MIP) were performed. Automated exposure control and iterative reconstruction technique were em ployed. The dose-length product was 697.89 mGy-cm. COMPARISON: 09/25/2020 FINDINGS: Good contrast opacification of the pulmonary arteries. There is mild streak artifact from dense contr ast in the superior vena cava and right atrium. Negligible respiratory motion artifact which does not significantly limit evaluation. No pulmonary embolism there are few scattered small bilateral calcif ied pulmonary nodules along with calcified mediastinal and bilateral hilar lymph nodes consistent wit h old granulomatous disease. No pneumonia, pulmonary edema, pleural effusion or pneumothorax. Heart s ize is normal. No pericardial effusion. Atherosclerotic coronary artery calcific a cyst. Thoracic aor ta is normal with no dissection. No significant interval change in mild likely reactive mediastinal l ymphadenopathy. Diffuse hepatic steatosis. Thoracic spondylosis with chronic mild anterior wedging at T11 and T12. IMPRESSION: 1. No pulmonary embolism or other acute cardiopulmonary disease. 2. Unchanged mild likely reactive mediastinal lymphadenopathy. 3. Diffuse hepatic steatosis Reviewed, dictated and finalized at location A.
[2020-10-11 21:15] VITALS: BP 130/86; PULSE 87; RESP 16; TEMP 36.3; O2SAT 87
--- NOTE | 2020-10-11 21:17 | ECG_ITS ---
Measurements Intervals [place] Rate: 83 P: 58 NH: 161 QRS: 51 QRSD: 83 T: 59 QT: 365 QTc: 430 Interpretive Statements SINUS RHYTHM BASELINE ARTIFACT- I, III, AVL, AVF NORMAL ECG Electronically Signed On 10-12-2020 8:37:21 CDT by Solomon Elias D.O.
[2020-10-11 21:31] LABS: Basophils Absolute Auto 0.1 K/mm3 (0.0-0.1); Basophils Percent Auto 1.1 % (0.2-1.2); Eosinophils Absolute Auto 0.2 K/mm3 (0-0.3); Eosinophils Percent Auto 3.4 % (0-4.4); Hematocrit 42.2 % (42.0-52.0); Hemoglobin 14.3 g/dL (14.0-18.0); Immature Granulocyte Absolute 0.06 K/mm3 (0.00-0.031); Immature Granulocyte Percent A 0.9 % (0-0.5); Immature Platelet Fraction Pct 4.2 % (0.9-11.2); Lymphocytes Absolute Auto 1.73 K/mm3 (0.9-3.2); Lymphocytes Percent Auto 24.7 % (18.3-44.2); Mean Corpuscular HGB Conc 33.9 g/dl (32-36); Mean Corpuscular Hemoglobin 32.9 pg (26-34); Mean Platelet Volume 9.3 fl (7.4-10.4); Monocytes Absolute Auto 0.7 K/mm3 (0.1-0.6); Monocytes Percent Auto 10.6 % (2.6-8.5); Neutrophils Absolute Auto 4.2 K/mm3 (1.3-6.7); Neutrophils Percent Auto 59.3 % (45.5-73.1); Platelet Count Result 158 k/mm3 (150-375); Red Blood Count 4.35 M/mm3 (4.6-6.20); Red Cell Distribution Width 12.7 % (11.5-14.5)
[2020-10-11 21:41] LABS: Anion Gap 13 mmol/L (8-16); Blood Urea Nitrogen 10 mg/dL (9-20); Calcium 8.5 mg/dL (8.4-10.2); Carbon Dioxide 22 mmol/L (22-30); Chloride 101 mmol/L (98-107); Estimated CRCL calculation 94 ml/min; Estimated Glomerular Filt Rate > 60; Glucose 101 mg/dL (75-110); Sodium 136 mmol/L (137-145)
[2020-10-11 22:39] VITALS: BP 131/83; PULSE 78; RESP 16; O2SAT 94; O2SAT 95
[2020-10-11 23:02] VITALS: BP 112/75; PULSE 80; RESP 19; O2SAT 97
[2020-10-11 23:32] VITALS: PULSE 88; RESP 26
[2020-10-11] MEDS: ALBUTEROL SULFATE NEB 2.5 MG/0.5 ML INH 5 MG INHALATION (23:32)
[2020-10-11] MEDS: IPRATROPIUM BR 0.02% INH SOLN 0.5 MG/2.5 ML VIAL INHALATION (23:32)
[2020-10-11 23:43] VITALS: PULSE 85; RESP 14
[2020-10-12 00:12] LABS: NT Pro B Type Natriuretic Pept 34 PG/ML (5-100); Troponin I < 0.012 ng/mL (0.000-0.034)
[2020-10-12 00:28] VITALS: BP 116/68; PULSE 97; RESP 25; O2SAT 98
--- NOTE | 2020-10-12 00:46 | ED.GENADULT ---
HPI - General Adult General Chief complaint: Shortness of Breath/Dyspnea Stated complaint: shortness of breath Time Seen by Provider: 10/11/20 23:03 History of Present Illness HPI narrative: Patient is a 55-year-old gentleman who presents the emergency department with chief complaint of shortness of breath. Patient reports that he has been having episodes of shortness of breath patient reports he was in the hospital recently and evaluated for both chest pain and shortness of breath he was found to have lymphadenopathy in his chest and the patient is to follow-up with pulmonology the patient has seen his doctor and was given new medications but the patient has not gotten them picked up in the last 13 days. Patient states that the shortness of breath has been slowly getting a little bit worse reports that he has been coughing a lot as well but not having a productive cough. Patient denies fever denies chills. Related Data Home Medications Medication Instructions Recorded Confirmed amlodipine 5 mg PO DAILY 09/25/20 09/25/20 atorvastatin 20 mg PO HS 09/25/20 09/25/20 cyclobenzaprine 10 mg PO HS PRN 09/25/20 09/25/20 gabapentin 300 mg PO TID 09/25/20 09/25/20 hydrocodone-acetaminophen 1 tablet PO QID PRN 09/25/20 09/25/20 meloxicam 15 mg PO DAILY 09/25/20 09/25/20 duloxetine mg PO 10/11/20 Allergies Allergy/AdvReac Type Severity Reaction Status Date / Time amoxicillin Allergy Intermediate ITCHING Verified 10/11/20 22:43 clavulanic acid Allergy Intermediate ITCHING Verified 10/11/20 22:43 lisinopril Allergy Intermediate ANGIOEDEMA Verified 10/11/20 22:43 Review of Systems Review of Systems: Narrative: A 10 system review of systems was completed on the patient and is negative except for what is stated in the HPI. Nursing and ancillary documentation was reviewed. [facility] Past Medical History Medical History Chronic hypertension Hyperlipidemia Surgical History Surgical History History of hernia surgery Family History Family History Mother Breast cancer Social History Social History Smoking status: Never smoker Tobacco type: smokeless tobacco Smokeless tobacco user: chewing tobacco Alcohol intake: current Drinks per week: 18 Substance use: never Gender identity (if verbalized by the patient): Male Spiritual care concerns: No Exam Narrative: Exam Narrative: GENERAL: Well-appearing, well-nourished, and in no acute distress. HEAD: Normocephalic, atraumatic. EYES: PERRLA and EOMI. ENT: Nares clear, no rhinorrhea or epistaxis. Mucous membranes moist. NECK: Supple. CHEST: Clear to auscultation. No respiratory distress. HEART: Regular rate and rhythm. No murmur heard. Normal peripheral pulses. ABDOMEN: Soft, nontender, nondistended, normal active bowel sounds. EXTREMITIES: Normal range of motion. No edema. SKIN: Warm, dry, no rash. NEURO: No focal deficits. Alert and oriented x3. PSYCH: Normal mood and affect. Course Course Emergency Course: Patient had improvement after receiving bronchodilator therapy CTA chest showed no evidence of pulmonary embolism laboratory studies otherwise are within normal limits Vital Signs Vital signs: Vital Signs Temperature 36.3 C L 10/11/20 21:15 Pulse Rate 87 10/11/20 21:15 Respiratory Rate 16 10/11/20 21:15 Blood Pressure 130/86 10/11/20 21:15 Pulse Oximetry 87 L 10/11/20 21:15 Temperature 36.3 C L 10/11/20 21:15 Pulse Rate 97 10/12/20 00:28 Respiratory Rate 25 H 10/12/20 00:28 Blood Pressure 116/68 10/12/20 00:28 Pulse Oximetry 98 10/12/20 00:28 Medical Decision Making Vital Signs Vital Signs: Vital Signs Temperature 36.3 C L 10/11/20 21:15 Pulse Rate 87 10/11/20 2
--- NOTE | 2020-10-12 01:26 | PC.NURSE ---
0115--patient not in room for discharge paperwork, asked staff in nursing station if anyone had puled his IV out-answers were no. Found patient out at front desk assistant-asked him if someone had removed his IV for him and he said yes. Had patient come into the triage room for discharge paperwork and confronted him about the IV that no-one had removed. Patient took off coat and admitted that he still had it in. I'm just a bull headed [place] and wanted to get out of here . IV removed from left AC without diff. strike off machine operator made aware of incident
== END 2020-10-12 01:20 | disposition home or self-care (01) ==
PROVIDERS: Emergency Provider Emergency Medicine; PCP Internal Medicine
DX: R06.00 Dyspnea, unspecified (principal); I10 Essential (primary) hypertension; E78.5 Hyperlipidemia, unspecified; F17.220 Nicotine dependence, chewing tobacco, uncomplicated; K76.0 Fatty (change of) liver, not elsewhere classified; R59.1 Generalized enlarged lymph nodes
CPT/HCPCS: 36415; 71046; 71275; 80048; 83880; 84484; 85025; 85055; 93005; 94640; 99284; Q9967

== ENCOUNTER 2020-12-10 20:16 | Emergency (ER) | payer OTHER, SELFPAY ==
[2020-12-10 20:21] VITALS: BP 106/71; PULSE 69; RESP 18; TEMP 36.9; O2SAT 96
--- NOTE | 2020-12-10 21:28 | ED.GENADULT ---
HPI - General Adult General Chief complaint: Unspecified Stated complaint: etoh intoxication Time Seen by Provider: 12/10/20 20:42 Source: patient Mode of arrival: EMS Limitations: clinical condition History of Present Illness HPI narrative: 55-year-old male Brought in by EMS after apparently stumbling and falling outside of a hotel in [place] He has some minor abrasions on his face right hand and knees but denies any other pains or complaints He has drank a significant amount of beer today which is not unusual He has high blood pressure, high cholesterol but is not having any chest pain or shortness of breath today No headache, no neck pain, no extremity injuries, no neuro symptoms Related Data Home Medications Medication Instructions Recorded Confirmed amlodipine 5 mg PO DAILY 09/25/20 09/25/20 atorvastatin 20 mg PO HS 09/25/20 09/25/20 cyclobenzaprine 10 mg PO HS PRN 09/25/20 09/25/20 gabapentin 300 mg PO TID 09/25/20 09/25/20 hydrocodone-acetaminophen 1 tablet PO QID PRN 09/25/20 09/25/20 meloxicam 15 mg PO DAILY 09/25/20 09/25/20 duloxetine mg PO 10/11/20 Allergies Allergy/AdvReac Type Severity Reaction Status Date / Time amoxicillin Allergy Intermediate ITCHING Verified 12/10/20 20:37 clavulanic acid Allergy Intermediate ITCHING Verified 12/10/20 20:37 lisinopril Allergy Intermediate ANGIOEDEMA Verified 12/10/20 20:37 Review of Systems Review of Systems: All systems reviewed & are unremarkable except as noted in HPI and below Constitutional: Constitutional: Reports no additional constitutional complaints, Denies fever(s) and Denies headache(s) Eyes: Eyes: Reports no additional eye complaints and Denies change in vision ENT: Denies headache(s) and Denies sore throat Cardiovascular: Cardiovascular: Denies chest pain and Denies dyspnea Respiratory: Respiratory: Denies cough and Denies dyspnea Gastrointestinal: Gastrointestinal: Denies abdominal pain, Denies diarrhea and Denies vomiting Genitourinary: Genitourinary: Denies dysuria and Denies urinary frequency Musculoskeletal: Musculoskeletal: Denies deformity, Reports arthralgias, Denies joint swelling and Denies numbness Integumentary/Breasts: Skin/Breast: Denies rash and Reports wounds Neurologic: Denies headache(s), Denies focal weakness and Denies numbness Psychiatric: Psychiatric: Reports no additional psychiatric complaints and Denies suicidal ideation Endocrine: Endocrine: Reports no additional endocrine complaints Hematologic/Lymphatic: Hematologic/Lymphatic: Reports no additional hematologic/lymphatic complaints Allergic/Immunologic: Allergic/Immunologic: Reports no additional allergic/immunologic complaints [facility] Past Medical History Medical History Chronic hypertension Hyperlipidemia Surgical History Surgical History History of hernia surgery Family History Family History Mother Breast cancer Social History Social History Smoking status: Never smoker Tobacco type: smokeless tobacco Smokeless tobacco user: chewing tobacco Alcohol intake: current Drinks per week: 18 Substance use: never Gender identity (if verbalized by the patient): Male Spiritual care concerns: No Exam Const: General: cooperative, no acute distress and awake Orientation/consciousness: patient oriented x3 (alert) HENMT: Head: No palpable skull fracture present, normocephalic, abrasion (Right cheek), no raccoon eyes and no scalp tenderness Ears: external ears normal and TM's abnormal bilaterally General nose exam: no epistaxis Face and sinus: sinuses nontender, no crepitus and no maxillary instability Mouth: Yes Normal oral and palatal mucosa present Other: Bony prominences are all nontender
[2020-12-10] MEDS: LACTATED RINGERS 1,000 ML 999 ML IV CONT (21:36)
[2020-12-10 21:52] LABS: Basophils Absolute Auto 0.1 K/mm3 (0.0-0.1); Basophils Percent Auto 0.6 % (0.2-1.2); Eosinophils Absolute Auto 0.4 K/mm3 (0-0.3); Eosinophils Percent Auto 3.1 % (0-4.4); Hematocrit 40.7 % (42.0-52.0); Hemoglobin 14.2 g/dL (14.0-18.0); Immature Granulocyte Percent A 0.8 % (0-0.5); Lymphocytes Absolute Auto 1.88 K/mm3 (0.9-3.2); Lymphocytes Percent Auto 14.6 % (18.3-44.2); Mean Corpuscular HGB Conc 34.9 g/dl (32-36); Mean Corpuscular Hemoglobin 33.6 pg (26-34); Mean Corpuscular Volume 96.2 fl (80-100); Mean Platelet Volume 9.1 fl (7.4-10.4); Monocytes Absolute Auto 1.9 K/mm3 (0.1-0.6); Monocytes Percent Auto 14.7 % (2.6-8.5); Neutrophils Absolute Auto 8.6 K/mm3 (1.3-6.7); Neutrophils Percent Auto 66.2 % (45.5-73.1); Platelet Count Result 220 k/mm3 (150-375); Red Blood Count 4.23 M/mm3 (4.6-6.20); Red Cell Distribution Width 12.1 % (11.5-14.5); White Blood Count 12.9 K/mm3 (4.5-10.0)
[2020-12-10 21:59] VITALS: BP 111/76; PULSE 69; RESP 16; O2SAT 100
[2020-12-10 22:04] LABS: Anion Gap 12 mmol/L (8-16); Blood Urea Nitrogen 13 mg/dL (9-20); Calcium 8.5 mg/dL (8.4-10.2); Carbon Dioxide 27 mmol/L (22-30); Chloride 91 mmol/L (98-107); Estimated CRCL calculation 84 ml/min; Estimated Glomerular Filt Rate > 60; Glucose 108 mg/dL (75-110); Potassium 3.3 mmol/L (3.4-5.0); Sodium 130 mmol/L (137-145)
[2020-12-10 22:20] LABS: Ethanol 266 mg/dL (<10)
[2020-12-10] MEDS: ONDANSETRON INJ 4 MG/2 ML VIAL IV PUSH (23:05)
[2020-12-10] MEDS: POTASSIUM CHLORIDE 20 MEQ PACKET (FOR LIQUID) 40 MEQ PO (23:05)
--- NOTE | 2020-12-10 23:30 | PC.NURSE ---
Pt states he has enough money for a cab ride back to [facility] where he is stating after discharge.
[2020-12-10 23:43] VITALS: BP 106/70; PULSE 71; RESP 16; O2SAT 96
--- NOTE | 2020-12-11 00:04 | PC.NURSE ---
Pt. walking out of ed. pt. stubbled and caught self on wheelchair. RN offered pt. assistance to bench or chair. pt. refused. pt. continued to stumble to road. RN contacted [facility] in regards to pt. safety.
--- NOTE | 2020-12-11 00:11 | PC.NURSE ---
Pt. returned to ED and requested RN to call a cab company for him. RN called [employer] [facility] to take pt. to [facility] in [place]. Cab to arrive shortly. Pt. with no obvious injuries, denies being hurt. pt. not requesting to be seen.
--- NOTE | 2020-12-11 00:13 | PC.NURSE ---
contacted [place] [employer] of pt. return to ED at this time and no longer needing their services
== END 2020-12-10 23:43 | disposition home or self-care (01) ==
PROVIDERS: Emergency Provider Emergency Medicine; PCP Internal Medicine
DX: F10.129 Alcohol abuse with intoxication, unspecified (principal); Y90.8 Blood alcohol level of 240 mg/100 ml or more
CPT/HCPCS: 36415; 80048; 80307; 85025; 96361; 96365; 96375; 99284; A9270; J2405; J3411; J7120

== ENCOUNTER 2021-02-19 09:09 | Outpatient (CLI) | payer OTHER, SELFPAY ==
--- NOTE | ~2021-02-19 | CT_ITS ---
EXAMINATION: CT diagnostic chest wo con EXAM DATE: 02/19/2021 10:01 INDICATION: R93.89 - Abnormal findings on diagnostic imaging of other... TECHNIQUE: Spiral CT of the chest without contrast. Axial, coronal and sagittal images of the chest were reviewed. Coronal maximum intensity pixel images of chest reviewed. The dose-length product ( DLP) for this examination was 201.55 mGy-cm. The exposure was tailored according to patient size (au to mA exposure control), and iterative reconstruction (ASIR) was used as additional dose reduction te [place]. Comparison is made to prior examination from 10/11/2020. FINDINGS: Scattered lung granulomata unchanged. There are no pleural or pericardial effusions. Tr acheobronchial tree is patent. Mild interval improvement in previously seen borderline mediastinal lymph node enlargement. There are scattered hilar calcifications, granulomas. There is no pneumothor ax. Heart normal in size. There is moderate coronary arterial calcification, arterial sclerosis. Improvement in previously seen hepatic steatosis. There is mild emphysema. There is thoracic spondyl osis without osteoblastic or osteolytic lesions identified. IMPRESSION: 1. Improving mediastinal lymphadenopathy likely reactive. 2. Scattered lung granulomata. Reviewed, dictated and finalized at location A.
== END 2021-02-19 09:10 | disposition home or self-care (01) ==
PROVIDERS: PCP Internal Medicine; Visit Provider Internal Medicine Pulmonary Disease
DX: R93.89 Abnormal findings on diagnostic imaging of other specified body structures (principal)
CPT/HCPCS: 71250

== ENCOUNTER 2021-03-24 05:02 | Emergency (ER) | payer OTHER, SELFPAY ==
--- NOTE | ~2021-03-24 | XR_ITS ---
EXAMINATION: XR foot RT min 3V DATE: 03/24/2021 06:21 INDICATION: Right foot deformity post injury TECHNIQUE: Dorsoplantar, two oblique and lateral views of the right foot were obtained. COMPARISON: None. FINDINGS: There are dorsolateral dislocations of the second-fifth metacarpophalangeal joints. There is an assoc iated intra-articular fracture involving the plantar/medial aspect of the base of the fifth proximal phalanx. Heterotopic ossification at the tips of the medial and lateral malleoli comment the dorsal n connie of the talus as well as along the distal aspect of the tibiofibular syndesmosis consistent with c hronic ankle sprains. IMPRESSION: 1. Dislocation of the second-fifth metacarpophalangeal joints joints with intra-articular fracture at the base of the fifth proximal phalanx. Reviewed, dictated and finalized at location A. IMPRESSION: 1. Dislocation of the second-fifth metacarpophalangeal joints joints with intra -articular fracture at the base of the fifth proximal phalanx.
--- NOTE | ~2021-03-24 | XR_ITS ---
EXAMINATION: XR foot RT 2V DATE: 03/24/2021 06:28 INDICATION: Postreduction second and fifth toe dislocations TECHNIQUE: Dorsoplantar and lateral views of the right foot were obtained. COMPARISON: 03/24/2021 at 6:04 AM FINDINGS: Successful reduction of the previously dislocated second-fourth metacarpophalangeal joint dislocation s. Partial reduction of the fifth metatarsophalangeal joint with mild residual lateral subluxation at the fifth metatarsophalangeal joint. Again noted is a mildly comminuted intra-articular fracture. Th ere is a nondisplaced fragment involving the central aspect of the articular surface and a larger fra gment involving the medial base of the proximal phalanx. The latter appears to have rotated with the fracture plane of the fragment effacing away from the base of the fifth proximal phalanx and towards the head of the fourth metatarsal. No other fractures identified. Heterotopic ossification at the rig ht ankle as previously detailed consistent with chronic ankle sprain IMPRESSION: 1. Successful reduction of the dislocated second-fourth metatarsophalangeal joints. 2. Partial reduction of the represents a dislocated fifth metatarsophalangeal joint with mild residua l subluxation likely due to significant rotation of one of the intra-articular fracture fragments at the medial base of the proximal phalanx. Reviewed, dictated and finalized at location A. IMPRESSION: 1. Successful reduction of the dislocated second-fourth metatarsophalangeal bridgette nts. 2. Partial reduction of the represents a dislocated fifth metatarsophalangeal j oint with mild residual subluxation likely due to significant rotation of one o f the intra-articular fracture fragments at the medial base of the proximal pha lanx.
[2021-03-24 05:03] VITALS: BP 149/89; PULSE 94; RESP 18; TEMP 36.8; O2SAT 99
--- NOTE | 2021-03-24 05:26 | PC.NURSE ---
Pts affected extremity soaking in warm water and wound cleanser at this time.
[2021-03-24] MEDS: TETANUS,DIPHTHERIA,AC PERTUSSIS ADULT (0.5 ML) BOOSTRIX IM (05:28)
[2021-03-24] MEDS: HYDROcodone/acetaminophen (*CRX) 5-325 MG TABLET 1 TAB PO (05:28)
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
--- NOTE | 2021-03-24 06:07 | PC.NURSE ---
EDP at bedside for reduction.
--- NOTE | 2021-03-24 06:23 | PC.NURSE ---
XY at bedside.
[2021-03-24 08:00] VITALS: BP 146/84; PULSE 72; RESP 16; O2SAT 98
== END 2021-03-24 08:05 | disposition home or self-care (01) ==
PROVIDERS: Emergency Provider Emergency Medicine; PCP Internal Medicine
DX: S93.124A Dislocation of metatarsophalangeal joint of right lesser toe(s), initial encounter (principal); S92.511A Displaced fracture of proximal phalanx of right lesser toe(s), initial encounter for closed fracture; S91.321A Laceration with foreign body, right foot, initial encounter; I10 Essential (primary) hypertension; E78.5 Hyperlipidemia, unspecified; F17.220 Nicotine dependence, chewing tobacco, uncomplicated; Z23 Encounter for immunization; W13.8XXA Fall from, out of or through other building or structure, initial encounter
CPT/HCPCS: 28630; 73620; 73630; 90471; 90715; 96365; 99283; 99284; 99285; A9270; J0690